=== PATIENT | male | born 1995 ===

== ENCOUNTER 2023-10-14 09:07 | Outpatient (AMB) | payer OTHER, SELFPAY ==
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
[2023-10-14 09:23] VITALS: BP 117/73; PULSE 85; RESP 12; TEMP 37.2; O2SAT 98; BMI 20.9
== END 2023-10-14 10:25 | disposition home or self-care (01) ==
PROVIDERS: PCP Physician Assistant; Visit Provider Physician Assistant
DX: Z00.00 Encounter for general adult medical examination without abnormal findings (principal); F41.1 Generalized anxiety disorder; F41.0 Panic disorder [episodic paroxysmal anxiety]; F34.1 Dysthymic disorder; M54.9 Dorsalgia, unspecified
CPT/HCPCS: 96127; 99385

== ENCOUNTER 2023-10-14 10:28 | Outpatient (REF) | payer OTHER, SELFPAY ==
[2023-10-14 13:56] LABS: CT PCR NOT DETECTED (Not Detect.); NG PCR NOT DETECTED (Not Detect.)
[2023-10-14 14:10] LABS: MANUAL DIFF FLAG NO
[2023-10-14 14:16] LABS: Basophils Percent Auto 0.2 % (0-2); Eosinophils Percent Auto 0.5 % (0-4); Hematocrit 44.3 % (42.0-52.0); Hemoglobin 15.2 g/dl (14.0-18.0); Lymphocytes Absolute Auto 1.6 X10*3/uL (1.2-4.9); Lymphocytes Percent Auto 38.1 % (20-40); Mean Corpuscular HGB Conc 34.3 g/dl (31.0-36.0); Mean Corpuscular Hemoglobin 27.7 pg (27.0-33.0); Mean Corpuscular Volume 80.8 fL (80.0-98.0); Mean Platelet Volume 9.1 fL (9.4-12.4); Monocytes Absolute Auto 0.4 X10*3/uL (0.1-1.2); Monocytes Percent Auto 9.1 % (2-11); Neutrophils Absolute Auto 2.2 x10*3/uL (2.0-8.3); Neutrophils Percent Auto 52.1 % (45-73); Platelet Count 350 X10*3/uL (160-400); Red Blood Count 5.48 X10*6/uL (4.60-5.80); Red Cell Distribution Width 11.9 % (11.0-16.0); White Blood Count 4.3 X10*3/uL (4.8-10.8)
[2023-10-14 14:51] LABS: Alanine Aminotransferase 15 U/L (0-40); Albumin Level 4.8 g/dL (3.5-5.0); Alkaline Phosphatase 59 U/L (39-117); Anion Gap 14 (12-20); Aspartate Amino Transferase 18 U/L (5-37); Bilirubin Total 0.4 mg/dL (0.0-1.0); Blood Urea Nitrogen 10 mg/dL (9-16); Calcium 9.9 mg/dL (8.4-10.2); Carbon Dioxide 25 mmol/L (22-29); Chloride 106 mmol/L (96-108); Cholesterol 207 mg/dL (<200); Estimated Glomerular Filt Rate > 60; Glucose Fasting 93 mg/dL (60-99); HDL Cholesterol 46 mg/dL (>40); LDL Cholesterol Calculated 139 mg/dL (<100); Potassium 4.1 mmol/L (3.3-5.1); Sodium 141 mmol/L (135-145); Total Protein 7.7 g/dL (6.5-8.0); Triglycerides 114 mg/dL (<150)
[2023-10-14 15:05] LABS: TSH reflex Free T4 1.33 uIU/mL (0.32-4.0)
[2023-10-14 15:19] LABS: Folate 13.2 ng/mL (> or = 4.0); Vitamin B12 297 pg/mL (200-900)
[2023-10-15 10:11] LABS: HIV AB/AG Nonreactive (Nonreactive); HIV Num 1 0.06 S/CO (0.00-0.99); Syphilis Screen Nonreactive (Nonreactive); ~HepC Num1 0.13 S/CO (0.00-0.79); ~Hepatitis C Antibody Nonreactive (Nonreactive)
== END 2023-10-14 10:29 | disposition home or self-care (01) ==
LOC: HO.WFDLDS 10:28
PROVIDERS: Visit Provider Physician Assistant
DX: Z00.00 Encounter for general adult medical examination without abnormal findings (principal); F41.1 Generalized anxiety disorder; F41.0 Panic disorder [episodic paroxysmal anxiety]; F34.1 Dysthymic disorder; M54.9 Dorsalgia, unspecified; Z11.3 Encounter for screening for infections with a predominantly sexual mode of transmission
CPT/HCPCS: 36415; 80053; 80061; 82607; 82746; 84443; 85025; 86780; 86803; 87389; 87491; 87591

== ENCOUNTER 2023-11-25 10:15 | Outpatient (AMB) | payer OTHER, SELFPAY ==
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
[2023-11-25 10:36] VITALS: BP 118/66; PULSE 99; O2SAT 98; BMI 21.3
== END 2023-11-25 11:04 | disposition home or self-care (01) ==
PROVIDERS: PCP Physician Assistant; Visit Provider Physician Assistant
DX: F41.1 Generalized anxiety disorder (principal); F41.0 Panic disorder [episodic paroxysmal anxiety]; F34.1 Dysthymic disorder; E78.5 Hyperlipidemia, unspecified; M54.9 Dorsalgia, unspecified
CPT/HCPCS: 96127; 99214

== ENCOUNTER 2024-02-04 09:05 | Outpatient (REF) | payer OTHER, SELFPAY ==
--- NOTE | ~2024-02-04 | XR_ITS ---
EXAMINATION: CERVICAL SPINE AND THORACIC SPINE CLINICAL INFORMATION: Dorsalgia COMPARISON: None available. TECHNIQUE: 3 views cervical spine, 2 views thoracic spine FINDINGS: No significant abnormality is seen. No soft tissue swelling, fractures or subluxations. Vertebral body heights and disc spaces are maintained. Alignment is normal. XR/XR cervical spine 3V IMPRESSION: Unremarkable examination. Electronically signed by: Carmine Diaz MD 02/04/2024 12:37 PM EDT
--- NOTE | ~2024-02-04 | XR_ITS ---
EXAMINATION: CERVICAL SPINE AND THORACIC SPINE CLINICAL INFORMATION: Dorsalgia COMPARISON: None available. TECHNIQUE: 3 views cervical spine, 2 views thoracic spine FINDINGS: No significant abnormality is seen. No soft tissue swelling, fractures or subluxations. Vertebral body heights and disc spaces are maintained. Alignment is normal. XR/XR thoracic spine 2V IMPRESSION: Unremarkable examination. Electronically signed by: Carmine Diaz MD 02/04/2024 12:37 PM EDT
== END 2024-02-04 09:06 | disposition home or self-care (01) ==
LOC: HO.XRAY 09:05
PROVIDERS: PCP Physician Assistant; Visit Provider Physician Assistant
DX: M54.9 Dorsalgia, unspecified (principal)
CPT/HCPCS: 72040; 72070

== ENCOUNTER 2024-04-07 14:56 | Outpatient (AMB) | payer OTHER, SELFPAY ==
--- NOTE | 2024-04-07 15:15 | MHC.PC.OV ---
Vital Signs 04/07/24 15:17 Height 5 ft 2.8 in Weight 128 lb BMI 22.8 BP 106/72 Blood Pressure Location Lt brachial Position Sitting Pulse 98 Pulse Source Pulse Oximeter Pulse Oximetry (%) 99 Oxygen Delivery Method Room Air Intake Visit Reasons: Rsched from 03/09 -Anxiety Intake Note: Follow up. 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 The patient has a history of anxiety for which he was previously prescribed sertraline 25 mg, though he has not initiated it. He has been managing anxiety with hydroxyzine, taking it on an as-needed basis. He reported observing an increase in anxiety symptoms approximately two weeks ago, characterized by racing thoughts, emotional lability, and difficulty identifying a panic attack. The patient started taking hydroxyzine two days ago, which has alleviated these symptoms. Patient also describes a recent episode of back pain, which manifested as a pressure sensation on both sides of his lower back. The discomfort appeared to be associated with his work-related gear and may have been intensified by certain physical activities, although it resolved without radiating down the legs. Health Maintenance - Emphasized the importance of maintaining a healthy sleep schedule despite working overnight. - Reinforced the benefits of continuing regular exercise and a healthy diet, especially important during periods of stress. - Reminder to integrate core-strengthening exercises to support back health. 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 - with children; strong family support; resides with [id number] for additional familial support. - Recently promoted at work. - Actively pursuing psychological counseling once a week. - Maintains a healthy lifestyle with regular exercise and a cautious approach to medications. Review of Systems - Psychiatric: Reports feeling trapped in thoughts, crying spells, improved with hydroxyzine. - Musculoskeletal: Reports localized lower back pain associated with work gear. Physical Exam General: Well developed, well nourished, in no acute distress. Appears stated age. Cardiac: RRR, no murmurs Lungs: clear, equal breath sounds, no wheezing or crackles Abdomen: soft, nontender, no CVA tenderness Back: FROM. Nontender, neg slr, dtrs 2+ Extremities: no edema Neuro: alert, oriented x3, mood appropriate [facility] Medical History (Updated 04/07/24 @ 15:54 by Sonali Chandler PA-C) Upper back pain on left side Dysthymia Generalized anxiety disorder with panic attacks Family History (Updated 10/14/23 @ 09:21 by Mercy Gunter CMA) Mother Diabetes Maternal Grandmother Diabetes Social History (Updated 10/14/23 @ 09:26 by Mercy Gunter CMA) Housing: House Patient Tobacco Use Status: Never used Tobacco Tobacco use type: Cigarette e-Cigarette/Vaping Use: Currently Using Second Hand Smoke Exposure: No service: Yes Current occupational status: employed 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 Current occupational exposures/hazards: No Cognitive needs: No Hearing needs: No Vision needs: No Questionnaire PHQ-9 Over the last 2 weeks, how often have you been bothered by any of the following problems? 1. Little interest or pleasure in doing things: not at all 2. Feeling down, depressed, or hopeless: not at all 3. Trouble falling or staying asleep, or sleeping too much: not at all 4. Feeling tired or having little energy: not at all 5. Poor appetite or overeating: not at all 6. Feeling bad about yourself - or that you are a failure or have let yourself or your family down: not at all 7. Trouble concentrating on things, such as reading the newspaper or watching television: not at all 8. Moving or speaking so slowly that other people could have noticed. Or the opposite - being so fidgety or restless that you have been moving around a lot more than usual: not at all 9. Thoughts that you would be better off or of hurting yourself in some way: not at all Total score: 0 Depression Screening Interpretation: Negative Depression Screening Done: Yes 58435 - PHQ-9 Billing: Yes Source: Developed by Drs. Henry Salmeron, Jory Osorio, Mohamud Mendez and colleagues, with an educational mauro from [employer]. Thrive Questionnaire Date Thrive assessed: 10/14/23 I am a: Patient What is your living situation today?: I have a steady place to live Within the past 12 months, did the food you bought not last and you didn't have the money to get more?: Never true Within the past 12 months, did you worry whether your food would run out before you got money to buy more?: I choose not to answer this question Do you have trouble paying for medicines?: No Do you have trouble getting transportation to medical appointments?: No Do you have trouble paying your heating and electricity bill?: No Do you have trouble taking care of your child, family member or friend?: No Do you have trouble with day-to-day activities such as bathing, preparing meals, shopping, managing finances, etc.?: No Are you currently unemployed and looking for a job?: No Are you interested in more education?: No Please select the resources that you would like help with: None Currently or been in a relationship where the following occur: I choose not to answer THRIVE Score: 0 AUDIT C Alcohol Use Questionnaire (AUDIT-C) 1. How often do you have a drink containing alcohol?: Never Total Score: 0 OLIVIA-7 AMB Questionnaire OLIVIA-7 Date OLIVIA - 7 assessed: 04/07/24 Feeling nervous, anxious, or on edge: 0 = Not at all Not being able to stop or control worryin = Not at all Worrying too much about different things: 0 = Not at all Trouble relaxin = Not at all Being so restless that it is hard to sit still: 0 = Not at all Becoming easily annoyed or irritable: 0 = Not at all Feeling afraid as if something awful might happen: 0 = Not at all Total OLIVIA-7 score (0-4 normal; 5-9 mild; 10-14 moderate; 15-21 severe): 0 Source: Developed by Drs. Henry Salmeron, Jory Osorio, Mohamud Mendez and colleagues, with an educational mauro from [employer]. OLIVIA-7 Assessment Billing OLIVIA-7 Assessment Tool: OLIVIA-7 Assessment 99568 Physical exam (Primary Care) Vital Signs: Last Vital Signs Pulse 98 04/07/24 15:17 BP 106/72 04/07/24 15:17 Pulse Ox 99 04/07/24 15:17 Oxygen Delivery Method Room Air 04/07/24 15:17 BMI result Body Mass Index 22.8 Tobacco/Smoking Status: Tobacco use Status Tobacco use date assessed 10/14/23 04/07/24 15:19 Patient Tobacco Use Status Never used Tobacco 04/07/24 15:19 Tobacco use type Cigarette 04/07/24 15:19 e-Cigarette/Vaping Use Currently Using 04/07/24 15:19 PHQ-9: PHQ-9 Score PHQ-9: Total score 0 04/07/24 15:38 Depression Screening Interpretation: Negative Thrive Assessment: Date of Thrive Assessment Date Thrive assessed 10/14/23 04/07/24 15:19 Currently or been in a relationship where the following occur: I choose not to answer Coding Level of Care Code Est Pt Level 4 (65267) Diagnoses Dysthymia F34.1 Generalized anxiety disorder with panic attacks F41.1; F41.0 Lumbar strain S39.012A Additional Codes OLIVIA-7 Assessment Billing - OLIVIA-7 Assessment Tool: OLIVIA-7 Assessment 68286 ([id number]) PHQ-9 - 45184 - PHQ-9 Billing: Yes ([id number]) Assessment & Plan Assessment & Plan (1) Dysthymia: Code(s): F34.1 - Dysthymic disorder Category: Medical Plan: Continue current regimen. Follow up in counseling and feeling well-controlled (2) Generalized anxiety disorder with panic attacks: Code(s): F41.1 - Generalized anxiety disorder; F41.0 - Panic disorder [episodic paroxysmal anxiety] Category: Medical Plan: As above. (3) Lumbar strain: Code(s): S39.012A - Strain of muscle, fascia and tendon of lower back, initial encounter Category: Medical Plan: Symptoms have resolved. Encouraged heat, ice as needed and stretching. Orders: Referrals Dermatology Referral L98.9 - Disorder of the skin and subcutaneous tissue, unspecified Medications: Refilled hydroxyzine HCl 10 mg PO BEDTIME PRN 90 tabs 1RF anxiety
[2024-04-07 15:17] VITALS: BP 106/72; PULSE 98; O2SAT 99; BMI 22.8
== END 2024-04-07 15:56 | disposition home or self-care (01) ==
PROVIDERS: PCP Physician Assistant; Visit Provider Physician Assistant
DX: F34.1 Dysthymic disorder (principal); F41.1 Generalized anxiety disorder; F41.0 Panic disorder [episodic paroxysmal anxiety]; S39.012A Strain of muscle, fascia and tendon of lower back, initial encounter

== ENCOUNTER → 2024-04-07 14:56 | Outpatient (BNVA) | payer OTHER, SELFPAY | PROVIDERS: PCP Physician Assistant; Visit Provider Physician Assistant | DX: F34.1 Dysthymic disorder (principal); F41.1 Generalized anxiety disorder; F41.0 Panic disorder [episodic paroxysmal anxiety]; S39.012A Strain of muscle, fascia and tendon of lower back, initial encounter; L98.9 Disorder of the skin and subcutaneous tissue, unspecified | CPT/HCPCS: 96127 ==

== ENCOUNTER 2025-01-12 15:36 | Outpatient (REF) | payer OTHER, SELFPAY ==
[2025-01-12 17:00] LABS: MANUAL DIFF FLAG NO
[2025-01-12 17:11] LABS: Hematocrit 41.3 % (42.0-52.0); Hemoglobin 14.4 g/dl (14.0-18.0); Imm Gran Abs Auto 0.01 X10*3/uL (0.00-0.03); Imm Gran Pct Auto 0.2 % (0.0-0.4); Lymphocytes Absolute Auto 1.9 X10*3/uL (1.2-4.9); Mean Corpuscular HGB Conc 34.9 g/dl (31.0-36.0); Mean Corpuscular Hemoglobin 27.9 pg (27.0-33.0); Mean Corpuscular Volume 80.0 fL (80.0-98.0); NRBC Abs Auto 0.000 X10*3/uL (0.0-0.012); NRBC Pct Auto 0.0 /100WBC (0.0-0.2); Platelet Count 316 X10*3/uL (160-400); Red Blood Count 5.16 X10*6/uL (4.60-5.80); White Blood Count 4.8 X10*3/uL (4.8-10.8)
[2025-01-12 18:34] LABS: Alanine Aminotransferase 47 U/L (0-40); Albumin Level 4.8 g/dL (3.5-5.0); Alkaline Phosphatase 66 U/L (39-117); Anion Gap 12 (12-20); Aspartate Amino Transferase 42 U/L (5-37); Blood Urea Nitrogen 14 mg/dL (9-16); Calcium 9.2 mg/dL (8.4-10.2); Carbon Dioxide 25 mmol/L (22-29); Chloride 109 mmol/L (96-108); Cholesterol 223 mg/dL (<200); Estimated Glomerular Filt Rate > 60; HDL Cholesterol 36 mg/dL (>40); Potassium 4.1 mmol/L (3.3-5.1); Sodium 142 mmol/L (135-145); Total Protein 7.6 g/dL (6.5-8.0); Triglycerides 134 mg/dL (<150)
== END 2025-01-12 15:37 | disposition home or self-care (01) ==
LOC: HO.LAB 15:36
PROVIDERS: PCP Physician Assistant; Visit Provider Physician Assistant
DX: Z00.00 Encounter for general adult medical examination without abnormal findings (principal); F41.1 Generalized anxiety disorder; F41.0 Panic disorder [episodic paroxysmal anxiety]; E78.5 Hyperlipidemia, unspecified; Z79.899 Other long term (current) drug therapy
CPT/HCPCS: 36415; 80053; 80061; 84443; 85025

== ENCOUNTER 2025-01-12 15:36 | Outpatient (AMB) | payer OTHER, SELFPAY ==
--- NOTE | 2025-01-12 15:49 | A.OFFPC_ITS ---
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 Still on third shift Psych: Rarely uses hydroxyzine as needed. Seeing . MSK: Has a history of chronic low back pain that intermittently flares up. Family history: maternal grandfather had [place]. Declines flu shot today. 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 Current occupational exposures/hazards: No Cognitive needs: No Hearing needs: No Vision needs: No Questionnaire Thrive Questionnaire Date Thrive assessed: 01/05/25 I am a: Patient What is your living situation today?: I have a steady place to live Within the past 12 months, did the food you bought not last and you didn't have the money to get more?: I choose not to answer this question Within the past 12 months, did you worry whether your food would run out before you got money to buy more?: Never true Do you have trouble paying for medicines?: No Do you have trouble getting transportation to medical appointments?: No Do you have trouble paying your heating and electricity bill?: No Do you have trouble taking care of your child, family member or friend?: No Do you have trouble with day-to-day activities such as bathing, preparing meals, shopping, managing finances, etc.?: No Are you currently unemployed and looking for a job?: No Are you interested in more education?: I choose not to answer this question Please select the resources that you would like help with: None Currently or been in a relationship where the following occur: I choose not to answer THRIVE Score: 0 AUDIT C Alcohol Use Questionnaire (AUDIT-C) 1. How often do you have a drink containing alcohol?: Never 3. How often do you have six or more drinks on one occasion?: Never Total Score: 0 OLIVIA-7 AMB Questionnaire OLIVIA-7 Date OLIVIA - 7 assessed: 04/07/24 Feeling nervous, anxious, or on edge: 0 = Not at all Not being able to stop or control worryin = Not at all Worrying too much about different things: 0 = Not at all Trouble relaxin = Not at all Being so restless that it is hard to sit still: 0 = Not at all Becoming easily annoyed or irritable: 0 = Not at all Feeling afraid as if something awful might happen: 0 = Not at all Total OLIVIA-7 score (0-4 normal; 5-9 mild; 10-14 moderate; 15-21 severe): 0 Source: Developed by Drs. Henry Salmeron, Jory Osorio, Mohamud Mendez and colleagues, with an educational mauro from [employer]. Physical exam (Primary Care) Vital Signs: Last Vital Signs Pulse 96 01/12/25 15:51 Resp 12 01/12/25 15:51 BP 108/78 01/12/25 15:51 Pulse Ox 95 01/12/25 15:51 Oxygen Delivery Method Room Air 01/12/25 15:51 BMI result Body Mass Index 23.4 Tobacco/Smoking Status: Tobacco use Status Tobacco use date assessed 10/14/23 01/12/25 15:53 Patient Tobacco Use Status Never used Tobacco 01/12/25 15:53 Tobacco use type Cigarette 01/12/25 15:53 e-Cigarette/Vaping Use Currently Using 01/12/25 15:53 Thrive Assessment: Date of Thrive Assessment Date Thrive assessed 01/05/25 01/12/25 15:53 Currently or been in a relationship where the following occur: I choose not to answer Const Orientation/consciousness: patient oriented x3 HENMT Ears: hearing grossly normal bilaterally and TM's normal bilaterally General nose exam: No nasal polyps present Face and sinus: Yes sinuses nontender Mouth: Normal oral and palatal mucosa present Eyes Pupils: Equal, round and reactive pupils present EOM: EOMs intact bilaterally Neck Neck: Yes full ROM and Yes no lymphadenopathy Thyroid: Thyroid normal Chest Chest palpation & inspection: normal inspection of the chest Resp Auscultation: clear to auscultation bilaterally Cardio Rate: regular rate Rhythm: regular rhythm Heart sounds: S1 normal heart sound present and S2 normal heart sound present Peripheral pulses: Peripheral pulses 2+ throughout GI Other: Soft, nontender Auscultation: normal bowel sounds Rectal Exam - Male: Yes deferred General: Yes no CVA tenderness Back/Spine/Pelvis Other: Nontender Back: no CVA tenderness Skin General skin exam: no rashes or lesions noted Neuro General: patient oriented x3, gait normal, CN's II-XI intact bilaterally and deep tendon reflexes 2+ bilaterally Cranial nerves: Yes Equal, round and reactive pupils present Motor exam (neuro): 5/5 motor strength present throughout Sensory Exam: double simultaneous stimulation for sensation normal Coordination: [id number] test normal and Romberg test negative Extrem General: Yes normal to inspection and Yes full ROM Psych Affect: normal affect Attitude: cooperative Thought process: Normal thought process present Thought content: Normal thought content present Insight: Good insight present (Psych) Judgement: Good judgement present (Psych) Coding Level of Care Code Est Pt Prev Care 18-39y(29905) Diagnoses Encounter for routine history and physical examination Z00.00 Generalized anxiety disorder with panic attacks F41.1; F41.0 Assessment & Plan Assessment & Plan (1) Encounter for routine history and physical examination: Code(s): Z00.00 - Encounter for general adult medical examination without abnormal findings Plan: Health maintenance reviewed. Labs ordered today. (2) Generalized anxiety disorder with panic attacks: Code(s): F41.1 - Generalized anxiety disorder; F41.0 - Panic disorder [episodic paroxysmal anxiety] Category: Medical Plan: Very well-controlled right now. Orders: Orders Complete Blood Count Auto Diff 01/12/25 E78.5 - Hyperlipidemia, unspecified, F41.0 - Panic disorder [episodic paroxysmal anxiety], F41.1 - Generalized anxiety disorder, Z00.00 - Encounter for general adult medical examination without abnormal findings Comprehensive [place]. Panel Fast 01/12/25 E78.5 - Hyperlipidemia, unspecified, F41.0 - Panic disorder [episodic paroxysmal anxiety], F41.1 - Generalized anxiety disorder, Z00.00 - Encounter for general adult medical examination without abnormal findings Lipid Panel 01/12/25 E78.5 - Hyperlipidemia, unspecified, F41.0 - Panic disorder [episodic paroxysmal anxiety], F41.1 - Generalized anxiety disorder, Z00.00 - Encounter for general adult medical examination without abnormal findings TSH reflex Free T4 01/12/25 E78.5 - Hyperlipidemia, unspecified, F41.0 - Panic disorder [episodic paroxysmal anxiety], F41.1 - Generalized anxiety disorder, Z00.00 - Encounter for general adult medical examination without abnormal findings Medications: Discontinued sertraline Discontinued Reason: Doctor's Order 25 mg PO DAILY 30 tabs 1RF
[2025-01-12 15:51] VITALS: BP 108/78; PULSE 96; RESP 12; O2SAT 95; BMI 23.4
--- OUTSIDE RECORDS SUMMARY | 2025-01-12 19:42 | XMS_ITS | Clinical Summary ---
Author Organization [address] [address] Phone Care Team Providers Care Operations Accountant Name Role Phone No, Pcp (Do Not Change Name) Primary Care Provid er Unavailable Allergies No known active allergies Medications No known medications Social History Tobacco Use Types Packs/Day Years Used Date Smoking Tobacco: Never Alcohol Use Standard Drinks/Week Comments No 0 (1 standard drink = 0.6 oz pur e alcohol) AUDIT-C Answer Date Recorded Frequency of Alcohol Consumption Never 06/26/2018 Average Number of Drinks Not on file 019 Frequency of Binge Drinking Not on file 12/2018 Sex and Gender Information Value Date Recorded Sex Assigned at Not on file Legal Sex Male 1:53 PM EST Gender Identity Not on file Sexual Orientation Not on file Last Filed Vital Signs Vital Sign Reading Time Taken Comments Blood Pressure 130/76 06/26/2018 1:54 PM EST Pulse 94 06/26/2018 1:54 PM EST Temperature 36.2 C (97.1 F) 06/26/2018 1:54 PM EST Respiratory Rate 16 06/26/2018 1:54 PM EST Oxygen Saturation 98% 06/26/2018 1:54 PM EST Inhaled Oxygen Concentration - - Weight - - Height - - Body Mass Index - - Plan of Treatment Health Maintenance Due Date Last Done Comments HIV screening 2006 Hepatitis C screening 2011 Tetanus adult (Td q 10,TDAP once) 2013 Influenza vaccine 11/18/2024 Covid-19 vaccine series (2023- season) 2024 RSV Immunization (1 - 1-dose 75+ series) 2068 Meningococcal B Vaccine Aged Out No l onger eligible based on patient's age to complete this topic Meningococcal Vaccine Aged Out No juma esperanza eligible based on patient's age to complete this topic Pneumococcal Vaccine (2 - 49 years) Aged Out No longer eligible based on patient's age to complete this topic Insurance [employer] Member Subscriber Plan / Payer (Ef fective 2018-Present) Name:DesmondFritz Tyson Jr. Relation to Subscriber:Self Name:DannyFritz woods Jr. Payer ID:[id number] Group ID:Not on file Type:Not on file [address] [employer] [place] Care Teams Operations Accountant Relationship Specialty Start Date End Date No, Pcp (Do Not Change Name) PCP - General 06/26/18
== END 2025-01-12 16:22 | disposition home or self-care (01) ==
LOC: HO.HMCFM 15:37
PROVIDERS: PCP Physician Assistant; Visit Provider Physician Assistant
DX: Z00.00 Encounter for general adult medical examination without abnormal findings (principal); F41.1 Generalized anxiety disorder; F41.0 Panic disorder [episodic paroxysmal anxiety]